=== PATIENT | male | born 1935 | race Caucasian/White ===

== ENCOUNTER 2017-03-20 22:03 | Inpatient (IN) ==
[2017-03-20] MEDS ORDERED: SODIUM CHLORIDE 0.9% 500 ML IV STA (23:16)
[2017-03-20 23:42] LABS: ABG Base Excess 0.5 MMOL/L (-2.5-2.5); ABG HCO3 24.8 MMOL/L (20-26); ABG PCO2 39.2 MM HG (35-48); ABG PH 7.412 (7.35-7.45); ABG TCO2 22.3 MMOL/L (23-27)
[2017-03-21 00:05] LABS: Basophils # 0.1 10*3/uL (0.0-0.2); Basophils % 0.5 % (0.0-0.8); Eosinophils # 0.3 10*3/uL (0.0-0.87); Eosinophils % 2.5 % (0.00-10.9); Hematocrit 37.2 VOL% (42.0-52.0); Hemoglobin 12.1 GM/DL (14.0-18.0); Immature Granulocytes % 0.3 %; Immature Granulocytes Absolute 0.03 #; Lymphocytes # 1.5 10*3/uL (1.4-4.0); Lymphocytes % 13.5 % (21.2-54.2); Mean Corpuscular HGB Conc 32.5 GM/DL (32-36); Mean Corpuscular Hemoglobin 30 PG (27-34); Mean Corpuscular Volume 91.4 FL (87-102); Mean Platelet Volume 10.1 FL (9.6-12.0); Monocytes # 0.8 10*3/uL (0.11-0.8); Monocytes % 6.8 % (1.7-12.7); Neutrophils # 8.6 10*3/uL (1.4-7.4); Neutrophils % 76.4 % (38.7-73.9); Platelet Count 169 T/CUMM (130-400); Red Blood Count 4.07 MC/CUMM (3.8-5.5); Red Cell Distribution Width 11.6 % (9.3-17.3); White Blood Count 11.2 T/CUMM (4-12)
[2017-03-21 00:25] LABS: PT Patient Result 10.2 SECS
[2017-03-21 00:44] LABS: Ammonia 17 UMOL/L (11-32)
[2017-03-21 00:48] LABS: Alanine Aminotransferase 21 U/L (16-61); Albumin 3.6 G/DL (3.4-5.0); Alkaline Phosphatase 136 U/L (45-117); Aspartate Amino Transferase 23 U/L (0-37); Blood Urea Nitrogen 41 MG/DL (7-18); Calcium 9.2 MG/DL (8.5-10.1); Glucose 90 MG/DL (74-106); Osmolality,Calculated 295.8 MOS/KG (273-304); Potassium 3.4 MMOL/L (3.5-5.1); Sodium 144 MMOL/L (136-145); Total Protein 7.2 G/DL (6.4-8.3); Troponin I Only < 0.015 NG/ML (0.00-0.045)
[2017-03-21 01:17] LABS: Sedimentation Rate-Westergren 76 MM/HR (0-20)
[2017-03-21] MEDS ORDERED: SODIUM CHLORIDE 0.9% 500 ML IV STA (01:47)
[2017-03-21 02:25] LABS: Apearance,Urine CLEAR (Clear); Bilirubin,Urine Negative (Negative); Blood, Urine Negative (Negative); Glucose,Urine (UA) Negative (Negative); Hyaline Casts,Urine 1 /LPF (0-3); Ketones,Urine 5 mg/dL (Negative); Nitrite,Urine Negative (Negative); Protein,Urine Negative; RBC,Urine 2 /HPF (0-4); Urine Color Yellow (Yellow); Urine Specific Gravity 1.011 (1.001-1.035); Urine Urobilinogen < 2.0 EU/DL (0.2-1.0); WBC,Urine 1 /HPF (0-6)
[2017-03-21 02:32] LABS: Barbiturates Screen,Urine Negative (Negative); Benzodiazepines Screen,Urine Negative (Negative); Cannabinoid Screen,Urine Negative (Negative); Opiate Screen,Urine Negative (Negative); Phencyclidine Screen,Urine Negative (Negative)
[2017-03-21] MEDS ORDERED: SODIUM CHLORIDE 0.45% 1,000 ML IV SCH (05:00)
[2017-03-21] MEDS ORDERED: QUEtiapine 25 MG TABLET PO PRN (05:20)
[2017-03-21] MEDS ORDERED: traZODone 50 MG TABLET PO PRN (05:20)
[2017-03-21] MEDS ORDERED: HALOPERIDOL 5 MG/ML AMP IM STA (09:48)
[2017-03-21] MEDS ORDERED: HALOPERIDOL 5 MG/ML AMP ONE ×2 (10:17→13:42)
[2017-03-21] MEDS ORDERED: HALOPERIDOL 5 MG/ML AMP IM ONE (13:51)
[2017-03-21] MEDS ORDERED: HALOPERIDOL 5 MG/ML AMP IV PRN (14:06)
[2017-03-21] MEDS: ZIPRASIDONE 20 MG/1 ML VIAL IM PRN (14:51)
[2017-03-21] MEDS: TAMSULOSIN 0.4 MG CAPSULE PO SCH (21:44)
[2017-03-21] MEDS: QUEtiapine 25 MG TABLET PO SCH (21:45)
[2017-03-22 07:02] LABS: Basophils % 0.3 % (0.0-0.8); Eosinophils # 0.2 10*3/uL (0.0-0.87); Eosinophils % 1.7 % (0.00-10.9); Hematocrit 33.4 VOL% (42.0-52.0); Hemoglobin 11.3 GM/DL (14.0-18.0); Immature Granulocytes % 0.4 %; Immature Granulocytes Absolute 0.04 #; Lymphocytes # 0.8 10*3/uL (1.4-4.0); Lymphocytes % 8.6 % (21.2-54.2); Mean Corpuscular HGB Conc 33.8 GM/DL (32-36); Mean Corpuscular Hemoglobin 30 PG (27-34); Mean Corpuscular Volume 88.6 FL (87-102); Mean Platelet Volume 10.6 FL (9.6-12.0); Monocytes # 0.5 10*3/uL (0.11-0.8); Monocytes % 5.5 % (1.7-12.7); Neutrophils # 8.1 10*3/uL (1.4-7.4); Neutrophils % 83.5 % (38.7-73.9); Platelet Count 171 T/CUMM (130-400); Red Blood Count 3.77 MC/CUMM (3.8-5.5); Red Cell Distribution Width 11.6 % (9.3-17.3); White Blood Count 9.7 T/CUMM (4-12)
[2017-03-22 07:43] LABS: Albumin 3.1 G/DL (3.4-5.0); Bilirubin,Total 0.8 MG/DL (0.2-1.0); Calcium 8.9 MG/DL (8.5-10.1); Osmolality,Calculated 293.6 MOS/KG (273-304); Potassium 3.3 MMOL/L (3.5-5.1); Thyroid Stimulating Hormone 0.953 uIU/ml (0.358-3.74); Total Protein 6.2 G/DL (6.4-8.3)
[2017-03-22] MEDS ORDERED: SODIUM CHLORIDE 0.45% 1,000 ML IV SCH (17:30)
[2017-03-22] MEDS: DONEPEZIL 10 MG TABLET PO SCH (21:02)
[2017-03-22] MEDS: POTASSIUM CHLORIDE 20 MEQ TABLET PO PRN (21:02)
[2017-03-22] MEDS: TAMSULOSIN 0.4 MG CAPSULE PO SCH (21:02)
[2017-03-22] MEDS: QUEtiapine 25 MG TABLET PO SCH (21:02)
[2017-03-22] MEDS: MEMANTINE 10 MG TABLET PO SCH (21:02)
[2017-03-23] MEDS: ZIPRASIDONE 20 MG/1 ML VIAL IM PRN (01:06)
[2017-03-23] MEDS: POTASSIUM CHLORIDE 20 MEQ TABLET PO PRN ×2 (01:10→08:47)
[2017-03-23 06:57] LABS: Basophils % 0.4 % (0.0-0.8); Eosinophils # 0.4 10*3/uL (0.0-0.87); Eosinophils % 3.5 % (0.00-10.9); Hemoglobin 11.3 GM/DL (14.0-18.0); Immature Granulocytes % 0.3 %; Immature Granulocytes Absolute 0.03 #; Lymphocytes # 1.8 10*3/uL (1.4-4.0); Lymphocytes % 16.9 % (21.2-54.2); Mean Corpuscular HGB Conc 34.2 GM/DL (32-36); Mean Corpuscular Hemoglobin 30 PG (27-34); Mean Corpuscular Volume 87.5 FL (87-102); Mean Platelet Volume 10.5 FL (9.6-12.0); Monocytes # 0.9 10*3/uL (0.11-0.8); Monocytes % 8.2 % (1.7-12.7); Neutrophils # 7.4 10*3/uL (1.4-7.4); Neutrophils % 70.7 % (38.7-73.9); Platelet Count 172 T/CUMM (130-400); Red Blood Count 3.77 MC/CUMM (3.8-5.5); Red Cell Distribution Width 11.6 % (9.3-17.3); White Blood Count 10.4 T/CUMM (4-12)
[2017-03-23 07:21] LABS: Calcium 9.2 MG/DL (8.5-10.1); Osmolality,Calculated 295.4 MOS/KG (273-304); Potassium 3.3 MMOL/L (3.5-5.1)
[2017-03-23] MEDS: DONEPEZIL 10 MG TABLET PO SCH (08:46)
[2017-03-23] MEDS: MEMANTINE 10 MG TABLET PO SCH (08:47)
[2017-03-23] MEDS ORDERED: amLODIPine 5 MG TABLET PO SCH (09:00)
[2017-03-23] MEDS ORDERED: POTASSIUM CHLORIDE 20 MEQ TABLET PO ONE (10:30)
[2017-03-23 12:29] VITALS: BP 156/90
== END 2017-03-23 13:31 | DRG 682 ==
LOC: EDUNIT# → EDBD → N.ED 22:03 → N.EDINP 03-21 04:36 → SUATTDRO 03-21 04:36 → N.2E 03-21 14:05
PROVIDERS: ADMIT Family Medicine; ATTEND Family Medicine

== ENCOUNTER 2018-01-21 12:02 | Inpatient (IN) ==
[2018-01-21 13:48] LABS: Albumin 2.5 G/DL (3.4-5.0); Bilirubin,Total 0.4 MG/DL (0.2-1.0); Calcium 9.6 MG/DL (8.5-10.1); Osmolality,Calculated 298.3 MOS/KG (273-304); Potassium 3.1 MMOL/L (3.5-5.1); Total Protein 7.4 G/DL (6.4-8.3)
[2018-01-21 13:58] LABS: Basophils # 0.1 10*3/uL (0.0-0.2); Basophils % 0.2 % (0.0-0.8); Hematocrit 39.6 VOL% (42.0-52.0); Hemoglobin 12.4 GM/DL (14.0-18.0); Immature Granulocytes % 3.2 %; Immature Granulocytes Absolute 0.64 #; Lymphocytes # 1.1 10*3/uL (1.4-4.0); Lymphocytes % 5.5 % (21.2-54.2); Mean Corpuscular HGB Conc 31.3 GM/DL (32-36); Mean Corpuscular Hemoglobin 28 PG (27-34); Mean Corpuscular Volume 90.4 FL (87-102); Mean Platelet Volume 10.9 FL (9.6-12.0); Monocytes # 1.9 10*3/uL (0.11-0.8); Monocytes % 9.4 % (1.7-12.7); Neutrophils # 16.5 10*3/uL (1.4-7.4); Neutrophils % 81.7 % (38.7-73.9); Platelet Count 157 T/CUMM (130-400); Red Blood Count 4.38 MC/CUMM (3.8-5.5); Red Cell Distribution Width 13.2 % (9.3-17.3); White Blood Count 20.2 T/CUMM (4-12)
[2018-01-21 14:08] LABS: INR 0.9; PT Patient Result 9.9 SECS
[2018-01-21] MEDS ORDERED: cefTRIAXone 1,000 MG in SODIUM CHLORIDE 0.9% 100 ML IV STA (14:20)
[2018-01-21] MEDS ORDERED: ONDANSETRON 4 MG/2 ML VIAL IV PRN (14:34)
[2018-01-21] MEDS ORDERED: LACTULOSE 20 GM/30 ML UDCUP PO PRN (14:34)
[2018-01-21] MEDS ORDERED: ACETAMINOPHEN 325 MG TABLET PO PRN (14:38)
[2018-01-21] MEDS ORDERED: POLYVINYL ALCOHOL 1.4% OPH SOLN 15 ML BOTTLE BOTH EYES PRN (14:38)
[2018-01-21] MEDS ORDERED: SODIUM CHLORIDE 0.45% 1,000 ML IV SCH (15:00)
[2018-01-21 15:07] LABS: Apearance,Urine CLEAR (Clear); Bacteria,Urine Occasional /HPF (Few); Bilirubin,Urine Negative (Negative); Blood, Urine Small mg/dL (Negative); Glucose,Urine (UA) Negative (Negative); Ketones,Urine Negative (Negative); Mucus,Urine Occasional /LPF (Occasional); Nitrite,Urine Negative (Negative); Protein,Urine 30 MG/DL; RBC,Urine 7 /HPF (0-4); Squamous Epithelial Cell,Urine Occasional /HPF (0-10); Urine Color Yellow (Yellow); Urine Specific Gravity 1.013 (1.001-1.035); WBC,Urine 35 /HPF (0-6)
[2018-01-21 15:18] LABS: Barbiturates Screen,Urine Negative (Negative); Benzodiazepines Screen,Urine Negative (Negative); Cannabinoid Screen,Urine Negative (Negative); Opiate Screen,Urine Negative (Negative); Phencyclidine Screen,Urine Negative (Negative)
[2018-01-21] MEDS ORDERED: MAGNESIUM SULF RIDER 2 GM in PREMIX 1 EACH IV PRN (16:02)
[2018-01-21] MEDS ORDERED: MAGNESIUM SULF RIDER 4 GM in PREMIX 1 EACH IV PRN (16:02)
[2018-01-21] MEDS ORDERED: HALOPERIDOL 5 MG/ML AMP IV PRN (17:05)
[2018-01-21] MEDS: ENOXAPARIN 40 MG/0.4 ML SYRINGE SUBCUT SCH (17:47)
[2018-01-21] MEDS: SODIUM CHLOR 0.45% KCL 20 MEQ 20 MEQ/1,000 ML BAG IV SCH (18:11)
[2018-01-21] MEDS: PIPERACILLIN/TAZOBACTAM 3,375 MG in SODIUM CHLORIDE 0.9% 100 ML IV SCH (18:11)
[2018-01-21] MEDS ORDERED: traZODone 50 MG TABLET PO SCH (21:00)
[2018-01-21] MEDS ORDERED: VANCOMYCIN INJ 1,500 MG in SODIUM CHLORIDE 0.9% 500 ML IV ONE (22:00)
[2018-01-21 23:11] LABS: Band Neutrophils 1 % (0-10); Lymphocytes 8 % (20-55); Myelocytes 1 %; Segmented Neutrophils 83 % (50-85); Total Cells Counted 100
[2018-01-21 23:13] LABS: Platelet Estimate Adequate
[2018-01-21] MEDS: DIVALPROEX SPRINKLE 125 MG CAPSULE PO SCH (23:26)
[2018-01-21] MEDS: MELATONIN 3 MG TABLET PO SCH (23:27)
[2018-01-21] MEDS: DONEPEZIL 10 MG TABLET PO SCH (23:28)
[2018-01-21] MEDS: TAMSULOSIN 0.4 MG CAPSULE PO SCH (23:28)
[2018-01-21] MEDS: DOCUSATE SODIUM 100 MG CAPSULE PO SCH (23:28)
[2018-01-22] MEDS: MEMANTINE 10 MG TABLET PO SCH ×2 (00:03→09:22)
[2018-01-22] MEDS: PIPERACILLIN/TAZOBACTAM 3,375 MG in SODIUM CHLORIDE 0.9% 100 ML IV SCH ×3 (04:49→23:58)
[2018-01-22] MEDS: POTASSIUM CHLORIDE RIDER 10 MEQ in PREMIX 1 EACH IV PRN ×4 (05:33→16:33)
[2018-01-22 06:22] LABS: Basophils % 0.2 % (0.0-0.8); Eosinophils % 0.1 % (0.00-10.9); Hematocrit 36.8 VOL% (42.0-52.0); Hemoglobin 11.6 GM/DL (14.0-18.0); Immature Granulocytes % 0.8 %; Immature Granulocytes Absolute 0.15 #; Lymphocytes % 5.6 % (21.2-54.2); Mean Corpuscular HGB Conc 31.5 GM/DL (32-36); Mean Corpuscular Hemoglobin 28 PG (27-34); Mean Corpuscular Volume 89.5 FL (87-102); Mean Platelet Volume 10.1 FL (9.6-12.0); Monocytes # 1.6 10*3/uL (0.11-0.8); Neutrophils % 84.3 % (38.7-73.9); Platelet Count 150 T/CUMM (130-400); Red Blood Count 4.11 MC/CUMM (3.8-5.5); Red Cell Distribution Width 13.1 % (9.3-17.3); White Blood Count 17.8 T/CUMM (4-12)
[2018-01-22 06:51] LABS: Calcium 8.8 MG/DL (8.5-10.1); Osmolality,Calculated 298.1 MOS/KG (273-304); Potassium 3.1 MMOL/L (3.5-5.1)
[2018-01-22] MEDS ORDERED: traZODone 50 MG TABLET PO SCH (09:00)
[2018-01-22] MEDS: ATORVASTATIN 20 MG TABLET PO SCH (09:22)
[2018-01-22] MEDS: PARoxetine 20 MG TABLET PO SCH (09:22)
[2018-01-22] MEDS: DOCUSATE SODIUM 100 MG CAPSULE PO SCH (09:22)
[2018-01-22] MEDS: DIVALPROEX SPRINKLE 125 MG CAPSULE PO SCH ×2 (09:22→23:57)
[2018-01-22] MEDS: TAMSULOSIN 0.4 MG CAPSULE PO SCH ×2 (09:22→23:58)
[2018-01-22] MEDS: amLODIPine 5 MG TABLET PO SCH (09:22)
[2018-01-22] MEDS: DONEPEZIL 10 MG TABLET PO SCH ×2 (09:22→23:57)
[2018-01-22] MEDS: ENOXAPARIN 40 MG/0.4 ML SYRINGE SUBCUT SCH ×2 (09:23→14:18)
[2018-01-22] MEDS: PANTOPRAZOLE 40 MG TABLET PO SCH (09:23)
[2018-01-22] MEDS: VANCOMYCIN INJ 1,000 MG in SODIUM CHLORIDE 0.9% 250 ML IV SCH (11:04)
[2018-01-22] MEDS ORDERED: cefTRIAXone 1,000 MG in SYRINGE 1 EACH IV SCH (15:00)
[2018-01-22] MEDS: MELATONIN 3 MG TABLET PO SCH (23:58)
[2018-01-23] MEDS: POTASSIUM CHLORIDE RIDER 10 MEQ in PREMIX 1 EACH IV PRN ×4 (04:13→14:00)
[2018-01-23] MEDS: PIPERACILLIN/TAZOBACTAM 3,375 MG in SODIUM CHLORIDE 0.9% 100 ML IV SCH (06:11)
[2018-01-23 07:16] LABS: Basophils # 0.1 10*3/uL (0.0-0.2); Basophils % 0.4 % (0.0-0.8); Eosinophils # 0.2 10*3/uL (0.0-0.87); Eosinophils % 1.2 % (0.00-10.9); Hematocrit 33.8 VOL% (42.0-52.0); Hemoglobin 10.9 GM/DL (14.0-18.0); Immature Granulocytes % 1.7 %; Immature Granulocytes Absolute 0.24 #; Lymphocytes # 1.4 10*3/uL (1.4-4.0); Lymphocytes % 9.4 % (21.2-54.2); Mean Corpuscular HGB Conc 32.2 GM/DL (32-36); Mean Corpuscular Hemoglobin 29 PG (27-34); Mean Corpuscular Volume 89.2 FL (87-102); Monocytes # 1.6 10*3/uL (0.11-0.8); Monocytes % 10.8 % (1.7-12.7); Neutrophils % 76.5 % (38.7-73.9); Platelet Count 166 T/CUMM (130-400); Red Blood Count 3.79 MC/CUMM (3.8-5.5); Red Cell Distribution Width 13.2 % (9.3-17.3); White Blood Count 14.4 T/CUMM (4-12)
[2018-01-23 07:33] LABS: Bilirubin,Total 0.4 MG/DL (0.2-1.0); Calcium 8.8 MG/DL (8.5-10.1); Osmolality,Calculated 296.3 MOS/KG (273-304); Potassium 3.2 MMOL/L (3.5-5.1); Total Protein 6.2 G/DL (6.4-8.3)
[2018-01-23] MEDS: SODIUM CHLOR 0.45% KCL 20 MEQ 20 MEQ/1,000 ML BAG IV SCH (08:04)
[2018-01-23] MEDS: DONEPEZIL 10 MG TABLET PO SCH ×2 (08:06→20:34)
[2018-01-23] MEDS: PANTOPRAZOLE 40 MG TABLET PO SCH (08:06)
[2018-01-23] MEDS: DIVALPROEX SPRINKLE 125 MG CAPSULE PO SCH ×2 (08:06→20:37)
[2018-01-23] MEDS: MEMANTINE 10 MG TABLET PO SCH ×3 (08:06→20:34)
[2018-01-23] MEDS: amLODIPine 5 MG TABLET PO SCH (08:06)
[2018-01-23] MEDS: ATORVASTATIN 20 MG TABLET PO SCH (08:06)
[2018-01-23] MEDS: PARoxetine 20 MG TABLET PO SCH (08:06)
[2018-01-23] MEDS: TAMSULOSIN 0.4 MG CAPSULE PO SCH ×2 (08:06→20:34)
[2018-01-23] MEDS: DOCUSATE SODIUM 100 MG CAPSULE PO SCH ×3 (08:32→20:34)
[2018-01-23] MEDS: POTASSIUM CHLORIDE INJ 40 MEQ in DEXTROSE 5% 1,000 ML IV SCH (11:48)
[2018-01-23] MEDS: VANCOMYCIN INJ 1,000 MG in SODIUM CHLORIDE 0.9% 250 ML IV SCH (11:57)
[2018-01-23] MEDS ORDERED: VANCOMYCIN INJ 1,000 MG in SODIUM CHLORIDE 0.9% 250 ML IV SCH (12:00)
[2018-01-23] MEDS: LEVOFLOXACIN 500 MG TABLET PO SCH (14:02)
[2018-01-23] MEDS: ENOXAPARIN 40 MG/0.4 ML SYRINGE SUBCUT SCH (14:02)
[2018-01-23] MEDS: MELATONIN 3 MG TABLET PO SCH (20:34)
[2018-01-24] MEDS: POTASSIUM CHLORIDE RIDER 10 MEQ in PREMIX 1 EACH IV PRN ×4 (01:12→05:49)
[2018-01-24 05:17] LABS: Basophils # 0.1 10*3/uL (0.0-0.2); Basophils % 0.8 % (0.0-0.8); Eosinophils # 0.3 10*3/uL (0.0-0.87); Eosinophils % 2.6 % (0.00-10.9); Hematocrit 38.6 VOL% (42.0-52.0); Immature Granulocytes % 5.7 %; Immature Granulocytes Absolute 0.65 #; Lymphocytes # 1.5 10*3/uL (1.4-4.0); Lymphocytes % 13.2 % (21.2-54.2); Mean Corpuscular HGB Conc 31.1 GM/DL (32-36); Mean Corpuscular Hemoglobin 28 PG (27-34); Mean Corpuscular Volume 88.5 FL (87-102); Mean Platelet Volume 10.2 FL (9.6-12.0); Monocytes # 1.2 10*3/uL (0.11-0.8); Monocytes % 10.2 % (1.7-12.7); Neutrophils # 7.7 10*3/uL (1.4-7.4); Neutrophils % 67.5 % (38.7-73.9); Platelet Count 190 T/CUMM (130-400); Red Blood Count 4.36 MC/CUMM (3.8-5.5); Red Cell Distribution Width 13.1 % (9.3-17.3); White Blood Count 11.4 T/CUMM (4-12)
[2018-01-24 05:26] LABS: Albumin 2.3 G/DL (3.4-5.0); Bilirubin,Total 0.8 MG/DL (0.2-1.0); Calcium 9.3 MG/DL (8.5-10.1); Osmolality,Calculated 295.3 MOS/KG (273-304); Potassium 2.8 MMOL/L (3.5-5.1); Total Protein 6.7 G/DL (6.4-8.3)
[2018-01-24 06:04] LABS: Hypochromasia 1+; Lymphocytes 13 % (20-55); Ovalocytes Slight; Platelet Estimate Adequate; Segmented Neutrophils 72 % (50-85); Total Cells Counted 100
[2018-01-24] MEDS ORDERED: POTASSIUM CHLORIDE 20 MEQ TABLET PO ONE ×2 (06:49→09:50)
[2018-01-24] MEDS ORDERED: LOPERAMIDE 0.2 MG/ML 30 ML/BOTTLE PO ONE (07:52)
[2018-01-24] MEDS: amLODIPine 5 MG TABLET PO SCH (08:41)
[2018-01-24] MEDS: PANTOPRAZOLE 40 MG TABLET PO SCH (08:41)
[2018-01-24] MEDS: PARoxetine 20 MG TABLET PO SCH (08:41)
[2018-01-24] MEDS: DONEPEZIL 10 MG TABLET PO SCH (08:41)
[2018-01-24] MEDS: DIVALPROEX SPRINKLE 125 MG CAPSULE PO SCH (08:41)
[2018-01-24] MEDS: LEVOFLOXACIN 500 MG TABLET PO SCH (08:41)
[2018-01-24] MEDS: TAMSULOSIN 0.4 MG CAPSULE PO SCH (08:41)
[2018-01-24] MEDS: MEMANTINE 10 MG TABLET PO SCH (08:41)
[2018-01-24] MEDS: ATORVASTATIN 20 MG TABLET PO SCH (08:41)
[2018-01-24] MEDS: DOCUSATE SODIUM 100 MG CAPSULE PO SCH (08:44)
[2018-01-24] MEDS: POTASSIUM CHLORIDE INJ 40 MEQ in DEXTROSE 5% 1,000 ML IV SCH (08:46)
[2018-01-24 09:25] LABS: Basophils # 0.1 10*3/uL (0.0-0.2); Basophils % 0.6 % (0.0-0.8); Eosinophils # 0.4 10*3/uL (0.0-0.87); Hematocrit 38.9 VOL% (42.0-52.0); Hemoglobin 12.6 GM/DL (14.0-18.0); Immature Granulocytes % 5.8 %; Immature Granulocytes Absolute 0.68 #; Lymphocytes # 1.3 10*3/uL (1.4-4.0); Lymphocytes % 11.1 % (21.2-54.2); Mean Corpuscular HGB Conc 32.4 GM/DL (32-36); Mean Corpuscular Hemoglobin 29 PG (27-34); Mean Corpuscular Volume 88.2 FL (87-102); Mean Platelet Volume 10.1 FL (9.6-12.0); Monocytes # 1.3 10*3/uL (0.11-0.8); Monocytes % 10.7 % (1.7-12.7); Neutrophils # 8.1 10*3/uL (1.4-7.4); Neutrophils % 68.8 % (38.7-73.9); Platelet Count 188 T/CUMM (130-400); Red Blood Count 4.41 MC/CUMM (3.8-5.5); White Blood Count 11.7 T/CUMM (4-12)
[2018-01-24 09:28] VITALS: BP 177/94
[2018-01-24 09:52] LABS: Band Neutrophils 1 % (0-10); Eosinophils 6 % (0-10); Hypochromasia 1+; Lymphocytes 9 % (20-55); Metamyelocytes 1 %; Segmented Neutrophils 71 % (50-85); Total Cells Counted 100
[2018-01-24 09:53] LABS: Microcytosis Slight
== END 2018-01-24 12:33 | DRG 871 ==
LOC: EDUNIT# → EDBD → N.ED 12:02 → N.EDINP 14:34 → N.5E 15:34
PROVIDERS: ADMIT Internal Medicine; ATTEND Internal Medicine